=== PATIENT | male | born 1980 | race African-American/Black ===

== ENCOUNTER 2020-03-24 12:41 | Emergency (ER) | payer SELFPAY ==
[2020-03-24] MEDS ORDERED: Bacitracin 1 PK ONE (12:58)
[2020-03-24] MEDS ORDERED: TETANUS, DIPHTHERIA TOX,ADULT (TDVAX) 0.5 ML VIAL IM ONE (12:58)
== END 2020-03-24 13:15 ==
LOC: NAV ERS 12:41
DX: S50.12XA Contusion of left forearm, initial encounter (principal); F17.210 Nicotine dependence, cigarettes, uncomplicated; Y04.1XXA Assault by human bite, initial encounter
CPT/HCPCS: 90471; 90714